=== PATIENT | female | born 1935 | race Caucasian/White ===

== ENCOUNTER 2018-06-24 07:36 | Emergency (ER) | payer MEDICARE ==
[2018-06-24] MEDS ORDERED: Sodium Chloride 0.9% 10 ML Syringe FLUSH PRN (07:52)
[2018-06-24] MEDS ORDERED: Ondansetron 4 MG/2 ML SDV IVPUSH ONE (07:55)
[2018-06-24] MEDS ORDERED: Sodium Chloride 0.9% 500 ML IV SCH (08:00)
--- NOTE | 2018-06-24 08:36 | EDM.PDOC ---
ED HPI GENERAL MEDICAL PROBLEM - General Chief Complaint: Neck Problem Stated Complaint: [facility] Time Seen by Provider: 06/24/18 07:39 Source of Information: Reports: Patient, EMS, Snf Records History Limitations: Reports: Other (Dementia) - History of Present Illness INITIAL COMMENTS - FREE TEXT/NARRATIVE: The patient presents by [facility] from [facility] in [facility] for a suspected fall. The patient has a history of dementia and they found her walking in her room this morning with blood to the back of her head. Staff is not sure what happened and the patient does not recall. She was complaining of lower neck pain around C7-T1. She denies any fever, chills, cough, chest pain, shortness of breath, abdominal pain or vomiting. She does have nausea. She is in a inflatable c-collar when she arrives. There are no other injuries found but when examining her she says other places hurt but no edema or deformities noted. Onset: Unknown/Unsure Location: Reports: Neck, Back (Upper thoracic) Quality: Reports: Sharp Severity: Moderate Improves with: Reports: Immobilization Worsens with: Reports: Movement Associated Symptoms: Reports: No Other Symptoms Posterior Neck Pain Score (Numeric/FACES): 8 - Related Data Allergies Allergy/AdvReac Type Severity Reaction Status Date / Time No Known Allergies Allergy Verified 06/24/18 07:52 Home Meds: Home Meds Acetaminophen [Tylenol] 650 mg PO BID 06/24/18 [History] Donepezil HCl 10 mg PO DAILY 06/24/18 [History] Levothyroxine 75 mcg PO DAILY 06/24/18 [History] Lisinopril 40 mg PO ACDINNER 06/24/18 [History] Melatonin/Herbal No.233 [Midnite Chewable Tablet] 1 tab PO BEDTIME PRN 06/24/18 [History] Memantine HCl [Namenda] 10 mg PO BID 06/24/18 [History] Oxybutynin Chloride 5 mg PO BID 06/24/18 [History] Sertraline [Zoloft] 25 mg PO DAILY 06/24/18 [History] Vit A/Vit C/Vit E/Zinc/Copper [Preservision Areds Softgel] 1 cap PO DAILY [History] metFORMIN [Glucophage XR] 500 mg PO DAILY #30 tab.er 06/24/18 [Rx] Past Medical History Cardiovascular History: Reports: High Cholesterol, Hypertension 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: Reports: Neurological History: Reports: CVA Psychiatric History: Reports: Alzheimers Disease, Anxiety, Dementia Endocrine/Metabolic History: Reports: Hypothyroidism Social & Family History - Tobacco Use Smoking Status *Q: Unknown Ever Smoked - Caffeine Use Caffeine Use: Reports: None - Recreational Drug Use Recreational Drug Use: No ED ROS GENERAL - Review of Systems Review Of Systems: See Below Constitutional: Reports: No Symptoms HEENT: Reports: No Symptoms Respiratory: Reports: No Symptoms Cardiovascular: Reports: No Symptoms Endocrine: Reports: No Symptoms GI/Abdominal: Reports: No Symptoms : Reports: No Symptoms Musculoskeletal: Reports: Neck Pain, Back Pain (Upper thoracic) Skin: Reports: No Symptoms Neurological: Reports: Confusion. Denies: Headache ED EXAM, UPPER BACK/NECK PAIN - Physical Exam Exam: See Below Exam Limited By: No Limitations General Appearance: Alert, No Apparent Distress Ears Exam: Normal External Exam Nose Exam: Normal Inspection Head Exam: Other (4cm laceration to the base of the back of the skull) Neck Exam: Tender Midline (to the lower c-spine) Cardiovascular/Respiratory: Regular Rate, Rhythm, No M/R/G, Normal Breath Sounds , No Respiratory Distress GI/Abdominal: Soft, Non-Tender, No Organomegaly, No Mass Back Exam: Other (Upper thoracic midline tenderness) Extremities: Normal Inspection, Non-Tender Neurologic: No Motor/Sensory Deficits, Alert ED LACERATION/WOUND PROCEDURES - Laceration/Wound Repair Head Laceration/Wound Length In cm: 4 Appearance: Subcutaneous, Linear Anesthetic Type: Local Local Anesthesia - Lidocaine (Xylocaine): 1% with EPI (and LET) Skin Prep: Saline Wound Exploration, Debridement, Revision: Wound Explored, In a Bloodless Field, Explored to Base # of Sutures: 8 Suture Type: Other (Meli) Tetanus Status Addressed: Yes Complications: None EKG INTERPRETATION EKG Date: 06/24/18 Time: 07:59 Rhythm: NSR Rate (Beats/Min): 62 [place]: Normal P-Wave: Present QRS: Normal ST-T: Other (Inverted T waves in the anterolateral leads) QT: Normal Course - Vital Signs Last Recorded V/S: Last Vital Signs Temp 98.2 F 06/24/18 07:39 Pulse 61 06/24/18 07:39 Resp 12 06/24/18 07:39 BP 170/81 H 06/24/18 07:39 Pulse Ox 98 06/24/18 07:39 - Orders/Labs/Meds Orders: Active Orders 24 hr Category Date Time Status Cardiac Monitoring [RC] . DIRECTED Care 06/24/18 07:52 Active EKG Documentation Completion [RC] STAT Care 06/24/18 07:53 Active Peripheral IV Care [RC] . DIRECTED Care 06/24/18 07:52 Active Sodium Chloride 0.9% [Normal Saline] 500 ml Med 06/24/18 08:00 Active IV .BOLUS Sodium Chloride 0.9% [Saline Flush] Med 06/24/18 07:52 Active 10 ml FLUSH ASDIRECTED PRN Peripheral IV Insertion Adult [OM.PC] Stat Oth 06/24/18 07:52 Ordered Medication Orders Sodium Chloride (Normal Saline) 500 mls @ 500 mls/hr IV .BOLUS JOSE ENRIQUE Last Admin: 06/24/18 08:03 Dose: 500 mls/hr Sodium Chloride (Saline Flush) 10 ml FLUSH ASDIRECTED PRN PRN Reason: Keep Vein Open Last Admin: 06/24/18 08:05 Dose: 10 ml Labs: Laboratory Tests 06/24/18 06/24/18 06/24/18 Range/Units 08:20 08:35 08:35 WBC 14.68 H (3.98-10.04) K/mm3 RBC 4.88 (3.98-5.22) M/mm3 Hgb 14.6 (11.2-15.7) gm/L Hct 43.9 (34.1-44.9) % MCV 90.0 (79.4-94.8) fl MCH 29.9 (25.6-32.2) pg MCHC 33.3 (32.2-35.5) g/dl RDW Std Deviation 42.6 (36.4-46.3) fL Plt Count 231 (182-369) K/mm3 MPV 10.6 (9.4-12.3) fl Neut % (Auto) 86.2 H (34.0-71.1) % Lymph % (Auto) 7.3 L (19.3-51.7) % [place] % (Auto) 5.8 (4.7-12.5) % Eos % (Auto) 0.1 L (0.7-5.8) Baso % (Auto) 0.1 (0.1-1.2) % Neut # (Auto) 12.66 H (1.56-6.13) K/mm3 Lymph # (Auto) 1.07 L (1.18-3.74) K/mm3 [place] # (Auto) 0.85 H (0.24-0.36) K/mm3 Eos # (Auto) 0.02 L (0.04-0.36) K/mm3 Baso # (Auto) 0.01 (0.01-0.08) K/mm3 Manual Slide Review Abnormal smear Sodium 138 (136-145) mEq/L Potassium 4.1 (3.5-5.1) mEq/L Chloride 101 (98-107) mEq/L Carbon Dioxide 26 (21-32) mEq/L Anion Gap 15.1 H (5-15) BUN 17 (7-18) mg/dL Creatinine 0.8 (0.55-1.02) mg/dL Est Cr Clr Drug Dosing 45.20 mL/min Estimated GFR (MDRD) > 60 (>60) mL/min BUN/Creatinine Ratio 21.3 H (14-18) Glucose 333 H (83-115) mg/dL Hemoglobin A1c (4.50-6.20) % Calcium 9.2 (8.5-10.1) mg/dL Total Bilirubin 0.6 (0.2-1.0) mg/dL AST 44 H (15-37) U/L ALT 37 (14-59) U/L Alkaline Phosphatase 57 (46-116) U/L Troponin I < 0.017 (0.00-0.056) ng/mL Total Protein 7.0 (6.4-8.2) g/dl Albumin 3.8 (3.4-5.0) g/dl Globulin 3.2 gm/dL Albumin/Globulin Ratio 1.2 (1-2) Urine Color Yellow (Yellow) Urine Appearance Clear (Clear) Urine pH 6.0 (5.0-8.0) Ur Specific [place] 1.020 (1.005-1.030) Urine Protein Negative (Negative) Urine Glucose (UA) 2+ H (Negative) Urine Ketones Negative (Negative) Urine Occult Blood Negative (Negative) Urine Nitrite Negative (Negative) Urine Bilirubin Negative (Negative) Urine Urobilinogen 0.2 (0.2-1.0) Ur Leukocyte Esterase Negative (Negative) Urine RBC Not seen (0-5) /hpf Urine WBC Not seen (0-5) /hpf Ur Epithelial Cells Not seen (0-5) /hpf Amorphous Sediment Moderate H (NOT SEEN) /hpf Urine Bacteria Not seen (FEW) /hpf Urine Mucus Many H (FEW) /hpf 06/24/18 Range/Units 08:35 WBC (3.98-10.04) K/mm3 RBC (3.98-5.22) M/mm3 Hgb (11.2-15.7) gm/L Hct (34.1-44.9) % MCV (79.4-94.8) fl MCH (25.6-32.2) pg MCHC (32.2-35.5) g/dl RDW Std Deviation (36.4-46.3) fL Plt Count (182-369) K/mm3 MPV (9.4-12.3) fl Neut % (Auto) (34.0-71.1) % Lymph % (Auto) (19.3-51.7) % [place] % (Auto) (4.7-12.5) % Eos % (Auto) (0.7-5.8) Baso % (Auto) (0.1-1.2) % Neut # (Auto) (1.56-6.13) K/mm3 Lymph # (Auto) (1.18-3.74) K/mm3 [place] # (Auto) (0.24-0.36) K/mm3 Eos # (Auto) (0.04-0.36) K/mm3 Baso # (Auto) (0.01-0.08) K/mm3 Manual Slide Review Sodium (136-145) mEq/L Potassium (3.5-5.1) mEq/L Chloride (98-107) mEq/L Carbon Dioxide (21-32) mEq/L Anion Gap (5-15) BUN (7-18) mg/dL Creatinine (0.55-1.02) mg/dL Est Cr Clr Drug Dosing mL/min Estimated GFR (MDRD) (>60) mL/min BUN/Creatinine Ratio (14-18) Glucose (83-115) mg/dL Hemoglobin A1c 9.60 H (4.50-6.20) % Calcium (8.5-10.1) mg/dL Total Bilirubin (0.2-1.0) mg/dL AST (15-37) U/L ALT (14-59) U/L Alkaline Phosphatase (46-116) U/L Troponin I (0.00-0.056) ng/mL Total Protein (6.4-8.2) g/dl Albumin (3.4-5.0) g/dl Globulin gm/dL Albumin/Globulin Ratio (1-2) Urine Color (Yellow) Urine Appearance (Clear) Urine pH (5.0-8.0) Ur Specific [place] (1.005-1.030) Urine Protein (Negative) Urine Glucose (UA) (Negative) Urine Ketones (Negative) Urine Occult Blood (Negative) Urine Nitrite (Negative) Urine Bilirubin (Negative) Urine Urobilinogen (0.2-1.0) Ur Leukocyte Esterase (Negative) Urine RBC (0-5) /hpf Urine WBC (0-5) /hpf Ur Epithelial Cells (0-5) /hpf Amorphous Sediment (NOT SEEN) /hpf Urine Bacteria (FEW) /hpf Urine Mucus (FEW) /hpf Meds: Medications Generic Name Dose Route Start Last Admin Trade Name Freq PRN Reason Stop Dose Admin Sodium Chloride 500 mls @ 500 mls/hr 06/24/18 08:00 06/24/18 08:03 Normal Saline IV 500 mls/hr .BOLUS JOSE ENRIQUE Administration Sodium Chloride 10 ml 06/24/18 07:52 06/24/18 08:05 Saline Flush FLUSH 10 ml ASDIRECTED PRN Administration Keep Vein Open Discontinued Medications Generic Name Dose Route Start Last Admin Trade Name Freq PRN Reason Stop Dose Admin Hydromorphone HCl 0.25 mg 06/24/18 08:54 06/24/18 09:06 Dilaudid IVPUSH 06/24/18 08:55 0.25 mg ONETIME ONE Administration Lidocaine/Epinephrine 20 ml 06/24/18 09:25 06/24/18 09:26 Xylocaine 1% With Epinephrine 1:100,000 INJECT 06/24/18 09:26 20 ml ONETIME ONE Administration Lidocaine/Epinephrine Confirm 06/24/18 09:23 06/24/18 09:30 Xylocaine 1% With Epinephrine 1:100,000 Administered 06/24/18 09:24 Not Given Dose 20 ml .ROUTE .STK-MED ONE Lidocaine/Tetracaine 3 ml 06/24/18 08:54 06/24/18 09:06 Let Soln TOP 06/24/18 08:55 3 ml ONETIME ONE Administration Ondansetron HCl 4 mg 06/24/18 07:55 06/24/18 08:02 Zofran IVPUSH 06/24/18 07:56 4 mg ONETIME ONE Administration - Re-Assessments/Exams Free Text/Narrative Re-Assessment/Exam: 06/24/18 08:50 I ordered an IV NS 500ml bolus, labs, EKG, CT of the head, cervical spine and thoracic spine. Her EKG shows flipped T waves in the anterolateral leads. 06/24/18 10:08 Her WBC is elevated at 14.68. Her glucose was elevated at 333. She is prediabetic. I did a Hgb A1C adn it was elevated at 9.6. Her AST was elevated at 44. Her troponin was negative. Her UA shows no UTI. The CT of her head shows senescent change. Small air fluid level within the right mastoid sinus. As mentioned on previous CT cercical spine study, this is most likely due to retained secretions if patient has no symptoms of acute mastoiditis. No acute intracranial abnormality is appreciated. No acute skull fracture is identified. The CT of her cervical spine shows degenerative change. Small air fluid level within the right mastoid sinus. This is most likely due to retained secretions if patient has no symptoms of acute mastoiditis. Nothing acute is seen on CT study of the cervical spine. CT of the thoracic spine shows degenerative change and other incidental findings. Nothing acute is identified on CT study of the thoracic spine. I called Dr Her and he wanted her on some metformin XR 500mg. 06/24/18 10:18 I stapled her wound closed. I will discharge her back to [place]. Departure - Departure Time of Disposition: 10:20 Disposition: Home, Self-Care 01 Condition: Good Clinical Impression: Fall Qualifiers: Encounter type: initial encounter Qualified Code(s): W19.XXXA - Unspecified fall, initial encounter Laceration of scalp Qualifiers: Encounter type: initial encounter Qualified Code(s): S01.01XA - Laceration without foreign body of scalp, initial encounter Diabetes mellitus type II, uncontrolled Qualifiers: Glycemic state: with hyperglycemia Qualified Code(s): E11.65 - Type 2 diabetes mellitus with hyperglycemia - Discharge Information *PRESCRIPTION DRUG MONITORING PROGRAM REVIEWED*: Not Applicable *COPY OF PRESCRIPTION DRUG MONITORING REPORT IN PATIENT RANCHO: Not Applicable Prescriptions: metFORMIN [Glucophage XR] 500 mg PO DAILY #30 tab.er Referrals: Kian Her MD [Primary Care Provider] - 1 Week Forms: ED Department Discharge Additional Instructions: Take your medication as prescribed. Take metformin 500mg daily. Clean the laceration with warms soapy water 2 times per day and apply antibiotic ointment after. Have the meli removed in 1 week. Please return if you are worse. - My Orders Last 24 Hours: My Active Orders 06/24/18 07:52 Cardiac Monitoring [RC] . DIRECTED Peripheral IV Care [RC] . DIRECTED Sodium Chloride 0.9% [Saline Flush] 10 ml FLUSH ASDIRECTED PRN Peripheral IV Insertion Adult [OM.PC] Stat 06/24/18 07:53 EKG Documentation Completion [RC] STAT 06/24/18 08:00 Sodium Chloride 0.9% [Normal Saline] 500 ml IV .BOLUS - Assessment/Plan Last 24 Hours: My Active Orders 06/24/18 07:52 Cardiac Monitoring [RC] . DIRECTED Peripheral IV Care [RC] . DIRECTED Sodium Chloride 0.9% [Saline Flush] 10 ml FLUSH ASDIRECTED PRN Peripheral IV Insertion Adult [OM.PC] Stat 06/24/18 07:53 EKG Documentation Completion [RC] STAT 06/24/18 08:00 Sodium Chloride 0.9% [Normal Saline] 500 ml IV .BOLUS
--- NOTE | 2018-06-24 08:51 | CT ---
Head CT Technique: Multiple axial sections through the brain were obtained. Intravenous contrast was not utilized. Comparison: No prior intracranial imaging. Findings: Ventricles along with basal cisterns and sulci over the convexities are mildly prominent. Mild diminished density is noted within the portions of the periventricular white matter compatible with small vessel ischemic demyelination change. No other abnormal parenchymal densities are seen. No evidence of intracranial hemorrhage. No midline shift or mass effect is seen. Bone window settings were reviewed which show no acute calvarial abnormality. Air-fluid level again noted within the right mastoid sinus. Other visualized sinuses are clear. Impression: 1. Senescent change as noted above. 2. Small air-fluid level within the right mastoid sinus. As mentioned on previous CT cervical spine study, this is most likely due to retained secretions if patient has no symptoms of acute mastoiditis. 3. No acute intracranial abnormality is appreciated. No acute skull fracture is identified. Diagnostic code #2
--- NOTE | 2018-06-24 08:51 | CT ---
CT cervical spine Technique: Multiple axial sections through the cervical spine were obtained. Comparison: No prior cervical spine imaging. Findings: Vertebral body heights and disc spaces are preserved. Small calcifications are seen anteriorly within the annulus at C5-C6 and C6-C7 which are incidental. Small air-fluid levels are seen within the right mastoid sinus. Degenerative change is is noted between the anterior arch of C1. Scattered degenerative change noted within the apophyseal joints. Moderate to severe left-sided neural foraminal stenosis noted at C3-C4. Other foramina are patent. No bony central canal stenosis is seen. Sclerotic lesion is noted within C4. No other sclerotic lesions are identified and this is most likely due to benign bone island. No fracture is seen. No abnormal subluxation is identified. Impression: 1. Degenerative change as noted above. 2. Small air-fluid level within the right mastoid sinus. This is most likely due to retained secretions if patient has no symptoms of acute mastoiditis. 3. Nothing acute is seen on CT study of the cervical spine. Diagnostic code #3
[2018-06-24] MEDS ORDERED: HYDROmorphone 1 MG/ML Syringe IVPUSH ONE (08:54)
[2018-06-24] MEDS ORDERED: EPINEPHrine/Lidocaine/Tetracai 3 ML ML TOP ONE (08:54)
--- NOTE | 2018-06-24 09:00 | CT ---
CT thoracic spine Technique: Multiple axial sections through the thoracic spine were obtained. Comparison: No previous study is available. Findings: Diffuse anterior endplate osteophytes are seen. Mild superior endplate concavities are noted of T10 as well as T12. These are felt to be old. No acute fracture lines are seen. Mild scattered degenerative change is seen within apophyseal joints. No bony central canal stenosis is seen. Slight posterior spurring is noted at T10-T11 and T12-L1. Bone lesion is seen within T11 having the appearance of a hemangioma. No gross disc herniation is seen. No abnormal subluxation is seen. Impression: 1. Degenerative change and other incidental findings. 2. Nothing acute is identified on CT study of the thoracic spine. Diagnostic code #2
[2018-06-24] MEDS ORDERED: Lidocaine 1% with EPINEPHrine 1:100,000 20 ML MDV ONE (09:23)
[2018-06-24] MEDS ORDERED: Lidocaine 1% with EPINEPHrine 1:100,000 20 ML MDV INJECT ONE (09:25)
[2018-06-24 10:03] LABS: HEMOGLOBIN A1C 9.6 % (4.50-6.20)
== END 2018-06-24 11:11 | disposition home or self-care (01) ==
LOC: JD.ED 07:36 → SUPCPDRO 07:36 → JD.ED 11:11
DX: S01.01XA Laceration without foreign body of scalp, initial encounter (principal); E11.65 Type 2 diabetes mellitus with hyperglycemia; I10 Essential (primary) hypertension; E78.00 Pure hypercholesterolemia, unspecified; E03.9 Hypothyroidism, unspecified; Z86.73 Personal history of transient ischemic attack (TIA), and cerebral infarction without residual deficits; Z79.84 Long term (current) use of oral hypoglycemic drugs; Z79.899 Other long term (current) drug therapy; W19.XXXA Unspecified fall, initial encounter
CPT/HCPCS: 12002; 36415; 70450; 72125; 72128; 80053; 81001; 83036; 84484; 85025; 93005; 99285; J1170; J2405; J7040; 93010; 99284